=== PATIENT | male | born 1950 | race Caucasian/White ===

== ENCOUNTER 2017-10-30 06:08 | Emergency (ER) | payer MEDICARE ==
[~2017-10-30] VITALS: Ht 175.2 cm; Wt 86.2 kg
[~2017-10-30 06:08] MED LIST: BYSTOLIC; LEVAQUIN750 M1 PO; NAPROSYN500 MG PO; NORCO 5-325 TA1 EACH PO
== END 2017-10-30 06:26 | disposition left against medical advice (07) ==
LOC: ED 06:08
DX: N20.1 Calculus of ureter (principal); Z87.442 Personal history of urinary calculi; Z79.899 Other long term (current) drug therapy

== ENCOUNTER → 2017-11-16 | Outpatient (CLI) | payer BC | END | disposition home or self-care (01) | LOC: US 02:36 | DX: N20.0 Calculus of kidney (principal); N13.30 Unspecified hydronephrosis ==

== ENCOUNTER 2018-05-02 13:04 | Emergency (ER) | payer BC ==
[~2018-05-02] VITALS: Wt 86.2 kg
[2018-05-02] MEDS ORDERED: PREDNISONE50 MG PO (13:41)
== END 2018-05-02 13:54 | disposition home or self-care (01) ==
LOC: ED 13:04
DX: M77.11 Lateral epicondylitis, right elbow (principal); Z79.2 Long term (current) use of antibiotics; Z87.442 Personal history of urinary calculi; X50.0XXA Overexertion from strenuous movement or load, initial encounter; Y93.89 Activity, other specified; Y92.69 Other specified industrial and construction area as the place of occurrence of the external cause; Y99.0 Civilian activity done for income or pay

== ENCOUNTER 2019-03-05 15:50 | Emergency (ER) | payer BC ==
[~2019-03-05] VITALS: Ht 175.2 cm; Wt 86.2 kg
[~2019-03-05 15:50] MED LIST changes: +PREDNISONE50 MG PO
[2019-03-05 16:36] LABS: BASO % 0.3 % (0.0-1.0); EOS % 0.1 % (1.0-4.0); HEMATOCRIT 48.7 % (42.0-52.0); HEMOGLOBIN 16.2 g/dl (14.0-18.0); LYMPH # 1.3 10*3/uL (1.3-4.4); LYMPH % 9.5 % (27.0-41.0); MEAN CELL VOLUME 88.9 fl (80.0-94.0); MEAN CORPUSCULAR HGB 29.6 pg (27.0-31.0); MEAN CORPUSCULAR HGB CONC 33.3 g/dl (33.0-37.0); MEAN PLATELET VOLUME 8.9 fl (9.6-12.3); MONO # 0.1 10*3/uL (0.1-1.0); MONO % 0.6 % (3.0-9.0); NEUT % 89.2 % (47.0-73.0); PLATELET COUNT AUTOMATED 306 10*3/uL (130-400); RED BLOOD COUNT 5.48 10*6/uL (4.50-5.90); RED CELL DISTRI WIDTH 12.2 % (0-14.5); WHITE BLOOD COUNT 13.4 10*3/uL (4.8-10.8)
[2019-03-05 16:53] LABS: ALBUMIN 4.2 gm/dl (3.1-4.5); ALKALINE PHOSPHATASE 76 U/L (45-117); BUN 20 mg/dl (7-24); CHLORIDE 111 mmol/L (98-107); POTASSIUM 4.3 mmol/L (3.5-5.1); SGOT/AST 18 IU/L (3-35); SGPT/ALT 31 U/L (12-78); SODIUM 141 mmol/L (136-145); TOTAL PROTEIN 7.5 gm/dL (6.4-8.2)
== END 2019-03-05 17:56 | disposition home or self-care (01) ==
LOC: ED 15:50
PROVIDERS: Emergency Medicine
DX: N20.1 Calculus of ureter (principal); Z79.2 Long term (current) use of antibiotics; Z79.899 Other long term (current) drug therapy; Z87.442 Personal history of urinary calculi

== ENCOUNTER 2019-03-07 00:41 | Emergency (ER) | payer BC, MEDICARE ==
[~2019-03-07] VITALS: Ht 175.2 cm; Wt 86.2 kg
[2019-03-07 01:50] LABS: HEMATOCRIT 44.6 % (42.0-52.0); HEMOGLOBIN 14.7 g/dl (14.0-18.0); MEAN CELL VOLUME 89.9 fl (80.0-94.0); MEAN CORPUSCULAR HGB 29.6 pg (27.0-31.0); PLATELET COUNT AUTOMATED 270 10*3/uL (130-400); RED BLOOD COUNT 4.96 10*6/uL (4.50-5.90); RED CELL DISTRI WIDTH 12.4 % (0-14.5); WHITE BLOOD COUNT 16.3 10*3/uL (4.8-10.8)
[2019-03-07 02:02] LABS: CREATININE 1.44 mg/dL (0.70-1.30); POTASSIUM 3.8 mmol/L (3.5-5.1)
[2019-03-07 02:08] LABS: PLATELET SUFFICIENCY NORMAL (NORMAL); TOTAL CELLS COUNTED 100 #CELLS
== END 2019-03-07 04:48 | disposition short-term general hospital (02) ==
LOC: ED 00:41
PROVIDERS: Physician Assistant
DX: N13.9 Obstructive and reflux uropathy, unspecified (principal); N20.1 Calculus of ureter; I10 Essential (primary) hypertension; Z87.442 Personal history of urinary calculi

== ENCOUNTER → 2019-04-17 | Outpatient (CLI) | payer BC ==
[2019-04-17 14:10] LABS: BASO # 0.1 10*3/uL (0.0-0.1); BASO % 1.1 % (0.0-1.0); EOS # 0.3 10*3/uL (0.0-0.4); EOS % 3.4 % (1.0-4.0); HEMATOCRIT 46.6 % (42.0-52.0); HEMOGLOBIN 15.1 g/dl (14.0-18.0); LYMPH # 3.6 10*3/uL (1.3-4.4); LYMPH % 40.5 % (27.0-41.0); MEAN CELL VOLUME 88.8 fl (80.0-94.0); MEAN CORPUSCULAR HGB 28.8 pg (27.0-31.0); MEAN CORPUSCULAR HGB CONC 32.4 g/dl (33.0-37.0); MONO # 0.9 10*3/uL (0.1-1.0); MONO % 10.6 % (3.0-9.0); NEUT # 3.9 10*3/uL (2.3-7.9); NEUT % 44.1 % (47.0-73.0); PLATELET COUNT AUTOMATED 321 10*3/uL (130-400); RED BLOOD COUNT 5.25 10*6/uL (4.50-5.90); RED CELL DISTRI WIDTH 12.1 % (0-14.5); WHITE BLOOD COUNT 8.8 10*3/uL (4.8-10.8)
[2019-04-17 14:41] LABS: ALBUMIN 4.1 gm/dl (3.1-4.5); ALKALINE PHOSPHATASE 83 U/L (45-117); BUN 13 mg/dl (7-24); CHLORIDE 109 mmol/L (98-107); CREATININE 1.11 mg/dL (0.70-1.30); POTASSIUM 4.1 mmol/L (3.5-5.1); SGOT/AST 17 IU/L (3-35); SGPT/ALT 33 U/L (12-78); SODIUM 143 mmol/L (136-145); T3 UPTAKE 35 % (31-39); THYROXINE (T4) TOTAL 7.8 ug/dl (4.5-12.1); TOTAL PROTEIN 7.3 gm/dL (6.4-8.2)
[2019-04-17 15:17] LABS: BILIRUBIN NEGATIVE (NEGATIVE); CLARITY CLEAR (CLEAR); COLOR YELLOW (YELLOW); GLUCOSE NEGATIVE (NEGATIVE); KETONE NEGATIVE (NEGATIVE)
[2019-04-17 15:18] LABS: BLOOD 1+ (NEGATIVE); LEUKO ESTERASE NEGATIVE (NEGATIVE); NITRITE NEGATIVE (NEGATIVE); UROBILINOGEN 0.2 E.U./dl (0.2-1.0)
[2019-04-17 15:26] LABS: BACTERIA TRACE; EPITHELIAL CELLS 0-2; MUCOUS 1+
== END | disposition home or self-care (01) ==
LOC: LAB 13:33
PROVIDERS: Nurse Practitioner Family
DX: N20.0 Calculus of kidney (principal); E83.50 Unspecified disorder of calcium metabolism; I10 Essential (primary) hypertension

== ENCOUNTER → 2019-04-19 | Outpatient (CLI) | payer BC | END | disposition home or self-care (01) | LOC: US 01:09 | DX: N20.0 Calculus of kidney (principal) ==

== ENCOUNTER → 2019-05-24 | Outpatient (CLI) | payer BC | END | disposition home or self-care (01) | LOC: RESCLI 02:36 | DX: Z76.89 Persons encountering health services in other specified circumstances (principal); Z12.11 Encounter for screening for malignant neoplasm of colon; I10 Essential (primary) hypertension; N40.1 Benign prostatic hyperplasia with lower urinary tract symptoms; R35.0 Frequency of micturition; E34.9 Endocrine disorder, unspecified; N20.0 Calculus of kidney; Z98.890 Other specified postprocedural states ==

== ENCOUNTER 2019-07-16 06:49 | Inpatient (IN) | payer BC, MEDICARE ==
[~2019-07-16] VITALS: Ht 172.7 cm; Wt 83.5 kg
[2019-07-16] VITALS (11 sets, daily range): BP systolic 126–189; BP diastolic 66–99
--- NOTE | 2019-07-16 | NUR ---
TYLENOL EFFECTIVE, TEMP NOW 99.7.
--- NOTE | 2019-07-16 07:08 | NUR ---
PT REPORTS THROBBING CONSTANT PAIN OF FOREHEAD RATED AT 8/10 FOR PAST 6 DAYS WITH FEVER DISPITE TAKING TYLENOL PT LAST TOOK TYLENOL APROX 3 HOURS AGO
[2019-07-16 07:38] LABS: BASO % 0.2 % (0.0-1.0); EOS % 0.3 % (1.0-4.0); HEMATOCRIT 46.1 % (42.0-52.0); LYMPH % 11.3 % (27.0-41.0); MEAN CELL VOLUME 84.9 fl (80.0-94.0); MEAN CORPUSCULAR HGB 28.9 pg (27.0-31.0); MEAN CORPUSCULAR HGB CONC 34.1 g/dl (33.0-37.0); MEAN PLATELET VOLUME 9.1 fl (9.6-12.3); MONO # 0.6 10*3/uL (0.1-1.0); MONO % 7.1 % (3.0-9.0); NEUT # 7.3 10*3/uL (2.3-7.9); NEUT % 80.8 % (47.0-73.0); PLATELET COUNT AUTOMATED 213 10*3/uL (130-400); RED BLOOD COUNT 5.43 10*6/uL (4.50-5.90); RED CELL DISTRI WIDTH 12.2 % (0-14.5); WHITE BLOOD COUNT 9.1 10*3/uL (4.8-10.8)
[2019-07-16 07:45] LABS: ACT PARTIAL THROMBO TIME 34.5 SECONDS (20.0-32.1)
--- NOTE | 2019-07-16 07:51 | NUR ---
RAPID COVID TEST WAS NEGATIVE
[2019-07-16 07:53] LABS: ALKALINE PHOSPHATASE 88 U/L (45-117); BUN 21 mg/dl (7-24); CHLORIDE 102 mmol/L (98-107); POTASSIUM 3.4 mmol/L (3.5-5.1); SGOT/AST 68 IU/L (3-35); SGPT/ALT 87 U/L (12-78); SODIUM 134 mmol/L (136-145); TOTAL PROTEIN 6.9 gm/dL (6.4-8.2)
[2019-07-16 07:54] LABS: TROPONIN I < 0.015 ng/ml (<0.045)
--- NOTE | 2019-07-16 08:11 | NUR ---
PT REPORTS DECREASE IN THROBBING FOREHEAD PULSE OX ISABELA PT DRINKING WATER AT THIS TIME IN FOWLERS POSITION BED IN LOWEST POSITION BED RAIL UP CALL LIGHT IN REACH PT IN ROOM #3 WITH DOORS CLOSED
--- NOTE | 2019-07-16 08:14 | NUR ---
SPOKE WITH PT WHO STATED PT PERSCRIBED A Z PACK LAST WEEK UNSURE IF PT HAS BEEN TAKING MEDS PT REPORTED TO ME THAT ONLY MED THAT HE TAKES IS FOR HYPERTENSION
--- NOTE | 2019-07-16 09:54 | NUR ---
PT IN BED WATCHING TV PT STATES HE FELLS BETTER HAS BETTER MENTAL CLARITY WITH PAIN OF FOREHEAD THROBBING COMPLETELY RELIEVED
[2019-07-16 10:38] LABS: LDH 295 U/L (87-241)
--- NOTE | 2019-07-16 10:40 | NUR ---
A 68, admitted to , under the services of SABINE De Souza DO with a diagnosis of SUSPECTED COVID-19 INFECTION AND SEVERE SEPSIS. Chief complaint is FEVER,FATIGUE, AND COUGH AT HOME. Patient arrived via stretcher from ER. Monitor applied. Initial assessment completed. Vital signs taken and recorded. SABINE DE SOUZA DO notified of admission to the unit. Orders received. See assessment for past medical history, medications and allergies. Patient and/or family oriented to unit. [facility] Clothing/patient valuable form completed. SHONDA GRIER
[2019-07-16 10:43] LABS: ABG BASE EXCESS -0.9 mmol/L (-2.0-2.0); ARTERIAL BLOOD GAS PH 7.412 (7.35-7.45)
[2019-07-16] MEDS ORDERED: NORVASC5 MG PO (15:03)
[2019-07-16 16:08] LABS: ABG BASE EXCESS -0.1 mmol/L (-2.0-2.0); ARTERIAL BLOOD GAS PH 7.443 (7.35-7.45)
--- NOTE | 2019-07-16 16:23 | NUR ---
ZOFRAN GIVEN FOR NAUSEA.
--- NOTE | 2019-07-16 17:55 | NUR ---
CONSULT CALLED TO . AWAITING CALL BACK.
--- NOTE | 2019-07-16 18:12 | NUR ---
CALLED BACK, SAID PT WOULD BE SEEN TOMORROW. NO NEW ORDERS RECD.
--- NOTE | 2019-07-16 19:00 | NUR ---
PATIENT IS REFUSING TO SELF PRONE AT THIS TIME. STATES HE IS UNABLE TO BREATH COMFORTABLY AND HURTS HIS BACK. PATIENT IS MOSTLY STAYING ON RIGHT SIDE/ABDOMINAL REGION WITH HOB ELEVATED 30 DEGRESS. EDUCATION PROVIDED ON ADVANTAGES OF PRONING, PATIENT IS NOT RECEPTIVE TO PRONING. WILL CONTINUE TO MONITOR
--- NOTE | 2019-07-16 20:02 | NUR ---
PATIENT MEDICATED WITH TYLENOL FOR LOW GRADE TEMP OF 99.9. WILL CONTINUE TO MONITOR
--- NOTE | 2019-07-16 22:00 | NUR ---
IV started right hand with #22 protective cath after 2 attempts. Site prepped with Chloroprep. Sterile dressing applied. Patient tolerated procedure well. AUTUMN RANDALL
--- NOTE | 2019-07-16 22:25 | NUR ---
PATIENT MEDICATED WITH ZOFRAN FOR C/O NAUSEA. WILL CONTINUE TO MONITOR
--- NOTE | 2019-07-16 23:25 | NUR ---
ZOFRAN EFFECTIVE FOR NAUSEA.
[2019-07-17] VITALS (7 sets, daily range): BP systolic 137–198; BP diastolic 68–100
--- NOTE | 2019-07-17 01:00 | NUR ---
PATIENT STILL REFUSES TO PRONE. LAYS ON RIGHT SIDE/ABDOMINAL REGION WITH HOB SLIGHTLY ELEVATED, STATES HE BREATHS BETTER IN THIS POSITION. EDUCATION PROVIDED THOUGH. WILL MONITOR
--- NOTE | 2019-07-17 01:03 | NUR ---
PATIENT MEDICATED WITH TYLENOL TO HELP KEEP TEMP DOWN. WILL CONITNUE TO MONITOR
--- NOTE | 2019-07-17 02:03 | NUR ---
TYLENOL APPEARS EFFEVTIVE. NO DISTRESS NOTED. WILL MONITOR
--- NOTE | 2019-07-17 05:28 | NUR ---
PATIENT MEDICATED WITH TYLENOL FOR C/O HEADACHE. WILL MONITOR
[2019-07-17 05:58] LABS: BASO % 0.1 % (0.0-1.0); HEMATOCRIT 45.2 % (42.0-52.0); LYMPH # 1.2 10*3/uL (1.3-4.4); LYMPH % 12.6 % (27.0-41.0); MEAN CELL VOLUME 87.1 fl (80.0-94.0); MEAN CORPUSCULAR HGB 28.9 pg (27.0-31.0); MEAN CORPUSCULAR HGB CONC 33.2 g/dl (33.0-37.0); MEAN PLATELET VOLUME 9.3 fl (9.6-12.3); MONO # 0.8 10*3/uL (0.1-1.0); MONO % 8.2 % (3.0-9.0); NEUT # 7.6 10*3/uL (2.3-7.9); NEUT % 78.8 % (47.0-73.0); PLATELET COUNT AUTOMATED 219 10*3/uL (130-400); RED BLOOD COUNT 5.19 10*6/uL (4.50-5.90); RED CELL DISTRI WIDTH 12.3 % (0-14.5); WHITE BLOOD COUNT 9.6 10*3/uL (4.8-10.8)
[2019-07-17 07:02] LABS: ALBUMIN 2.7 gm/dl (3.1-4.5); ALKALINE PHOSPHATASE 78 U/L (45-117); BUN 22 mg/dl (7-24); CHLORIDE 106 mmol/L (98-107); CREATININE 1.09 mg/dL (0.70-1.30); POTASSIUM 3.9 mmol/L (3.5-5.1); SGOT/AST 56 IU/L (3-35); SGPT/ALT 68 U/L (12-78); SODIUM 138 mmol/L (136-145); TOTAL PROTEIN 6.7 gm/dL (6.4-8.2)
[2019-07-17 08:08] LABS: HEP B CORE AB, IGM Negative (Negative); HEPATITIS B SURFACE AG Negative (Negative); HEPATITIS C AB 0.1 (0.0-0.9); HEPATITIS C VIRUS ANTIBODY 0.1 s/co (0.0-0.9)
--- NOTE | 2019-07-17 08:44 | NUR ---
PRN TYLENOL AND ZOFRAN ADMINISTERED AT THIS TIME FOR COMPLAINTS OF NAUSEA AND A HEADACHE. WILL MONITOR FOR EFFECTIVENESS.
--- NOTE | 2019-07-17 09:00 | NUR ---
Photography Colorist in to talk to patient. Patient states lives at home with . There are no steps in the home. Physician: [facility] [place] [facility]: none Patient's level of ADLs: INDEPENDENT Patient has working utilities: all working DME: none Follow-up physician's appointment after d/c: will be made by hospitalist nurse director upon discharge Does patient want to access PORTAL?: no Discharge plan discussed with patient, he lives at home, is normally independent in adls and ambulation, works, and drives, he will return home when medically stable and denies any home needs at this time, case management will follow. MARLENI PITT
--- NOTE | 2019-07-17 10:00 | NUR ---
PT ASLEEP. TYLENOL AND ZOFRAN CONSIDERED EFFECTIVE. NO SOB NOTED AT REST. 6L NC INTACT. NO DISTRESS. BED IN LOWEST LOCKED POSITION AND CALL LIGHT WITHIN REACH.
[2019-07-17 11:08] LABS: ABG BASE EXCESS -0.2 mmol/L (-2.0-2.0); ARTERIAL BLOOD GAS PH 7.428 (7.35-7.45)
--- NOTE | 2019-07-17 12:00 | NUR ---
PT'S O2 CAME OFF WHILE ASLEEP. PULSE OX 78% PT INSTRUCTED TO BREATH DEEP THROUGH NOSE. O2 INCREASED TO 8L. RESPIRATORY NOTIFIED AND IN TO THE ROOM. PT REPOSITIONED IN BED. PULSE OX 94% O2 REDUCED BACK TO 6L. NO DISTRESS NOTED. RESPIRATIONS ARE EASY AND REGULAR. DENIES PAIN. BED IN LOWEST LOCKED POSITION AND CALL LIGHT WITHIN REACH. WILL CONTINUE TO MONITOR.
--- NOTE | 2019-07-17 12:51 | NUR ---
PRN TYLENOL ADMINISTERED AT THIS TIME FOR COMPLAINTS OF A HEADACHE.
--- NOTE | 2019-07-17 14:00 | NUR ---
2 ATTEMPTS AT AN IV MADE BY NURSE. UNSUCCESSFUL. TREMAYNE MEDLEY ALSO ATTEMPTED. UNSUCCESSFUL REBECCA MEDLEY SUCCESSFUL WITH ULTRA SOUND MACHINE. NEW IV IN RIGHT UPPER ARM. PATIENT TOLERATED WELL. BED IN LOWEST LOCKED POSITION AND CALL LIGHT WITHIN REACH.
--- NOTE | 2019-07-17 18:00 | NUR ---
PT STATES HE DOES NOT WANT VITAMIN C OR NEUTRA PHOS AT THIS TIME. STATES HE WANTS TO EAT FIRST. WILL TRY AGAIN AT ANOTHER TIME.
--- NOTE | 2019-07-17 19:00 | NUR ---
ABG DRAWN ON 15L HFNC. SATS STILL 88-90. PLACED ON NONREBREATHER. SATS BETWEEN 88-93 NOT COMPLAINING OF SHORTNESS OF BREATH AT THIS TIME
[2019-07-17 19:05] LABS: ABG BASE EXCESS -0.6 mmol/L (-2.0-2.0); ARTERIAL BLOOD GAS PH 7.424 (7.35-7.45)
--- NOTE | 2019-07-17 19:13 | NUR ---
UPON ENTERING ROOM, PATIENT HAS O2 OFF AND IS TALKING ON PHONE. PULSE OX 68%. O2 REAPPLIED. PULSE OX WAS GOING NO HIGHER THAN 80%. RESPIRATORY NOTIFIED. 15L HIFLOW O2 APPLIED. ABG'S OBATINED. PULSE OX 90%
--- NOTE | 2019-07-17 19:45 | NUR ---
DR FULLER CALLED REGARDING PATIENTS PULSE OX OF 88% DESPITE USE ON NONREBREATHER AND UPDATED ON ABG'S. ORDERS RECIEVED. PT'S UPDATED ON PATIENTS STATUS.
--- NOTE | 2019-07-17 19:45 | NUR ---
PT COMPLAINING OF SHORTNESS OF BREATH. dR FULLER CALLED. SETTING UP FOR INTUBATION
--- NOTE | 2019-07-17 20:25 | NUR ---
PT INTUBATED WITH A #8 ET TUBE. PT STARTED ON A DIPRIVAN GTT FOR SEDATION AT 30MCG. WEBER PLACED, L RADIAL ART AND RIJ MLC PLACED BY ANESTHESIA. 1 DOSE OF ZEMURON GIVEN. SEE ASSESSMENT.
--- NOTE | 2019-07-17 21:25 | NUR ---
DR VEGA AWARE THAT LAB IS UNABLE TO PREFORM ORDERED TESTS UNTIL AM.
--- NOTE | 2019-07-17 22:00 | NUR ---
KINNEAR AWARE THAT PATIENT HEART RATE AND BP HAVE ELEVATED TO 190'S AND 200/100. ORDERS RECEIVED.
[2019-07-17 22:32] LABS: ABG BASE EXCESS -3.2 mmol/L (-2.0-2.0)
[2019-07-17 22:33] LABS: ARTERIAL BLOOD GAS PH 7.19 (7.35-7.45)
--- NOTE | 2019-07-17 22:40 | NUR ---
DR. NINA NOTIFIED THAT LABETALOL AND DILAUDID HAS BEEN EFFECTIVE. HR AT 90'S AND BP 122/ 76 PER ART LINE.
[2019-07-18] VITALS (43 sets, daily range): BP systolic 95–175; BP diastolic 55–82
[2019-07-18 01:07] LABS: ABG BASE EXCESS -2.7 mmol/L (-2.0-2.0); ARTERIAL BLOOD GAS PH 7.324 (7.35-7.45)
[2019-07-18 05:38] LABS: ABG BASE EXCESS -2.2 mmol/L (-2.0-2.0); ARTERIAL BLOOD GAS PH 7.349 (7.35-7.45)
--- NOTE | 2019-07-18 09:00 | NUR ---
PATIENT IS INTUBATED AND SEDATED WITH DIPRIVAN GTT. DIPRIVAN INCREASED TO 50 MICS/24.6CC. ET TUBE 25 LIP/OGT TAPED ALONGSIDE. RIJ PATENT AND MORNING LABS DRAWN. RIJ DRESSING CHANGED DUE TO IT BE SOILED. SUCTIONED FOR SCANT AMOUNT SPUTUM ENDO AND ORALLY. BOWEL SOUNDS X 4. NO EXTREMITIY EDEMA. WEBER PATENT FOR MILDRED URINE. R RADIAL ART LINE ZEROED. BP 137/74. FIO2 TURNED DOWN TO 55% PER RESPIRATORY. POX 98%, HR 109,RESPIRATIONS 28,TEMP 101.7. TYLENOL GIVEN VOA OGT.
[2019-07-18 09:03] LABS: BASO % 0.1 % (0.0-1.0); EOS % 0.1 % (1.0-4.0); LYMPH # 0.8 10*3/uL (1.3-4.4); LYMPH % 5.4 % (27.0-41.0); MEAN CELL VOLUME 88.1 fl (80.0-94.0); MEAN CORPUSCULAR HGB 28.7 pg (27.0-31.0); MEAN CORPUSCULAR HGB CONC 32.6 g/dl (33.0-37.0); MONO # 1.1 10*3/uL (0.1-1.0); MONO % 7.4 % (3.0-9.0); NEUT # 12.7 10*3/uL (2.3-7.9); NEUT % 86.3 % (47.0-73.0); PLATELET COUNT AUTOMATED 250 10*3/uL (130-400); RED BLOOD COUNT 4.88 10*6/uL (4.50-5.90); RED CELL DISTRI WIDTH 12.7 % (0-14.5); WHITE BLOOD COUNT 14.7 10*3/uL (4.8-10.8)
[2019-07-18 09:20] LABS: ALBUMIN 2.7 gm/dl (3.1-4.5); CREATININE 1.99 mg/dL (0.70-1.30); POTASSIUM 4.3 mmol/L (3.5-5.1); TOTAL PROTEIN 6.8 gm/dL (6.4-8.2)
--- NOTE | 2019-07-18 09:30 | NUR ---
case management talks with patient's Jatin. discussed with her a discharge plan for patient when he is medically stable, educated her that he may need to go to a short term snf for rehab prior to returning home. educated her that patient would received 5 days of therapy and 24 hour care until he was stable to return home. she stated she was familiar with a snf but wanted to discuss where to refer patient to with her family, she stated she would contact case management with her decision for a snf referral. she stated if patient was medically able to return home she would like to have [facility] visit him at home. case management will follow
--- NOTE | 2019-07-18 10:00 | NUR ---
SPOKE TO DR. VEGA. ZOSYN AND ACTEMRA ANTIBIOTICS ARE ORDERED. MAKE SURE EXTENDED RELEASE FOR ZOSYN.
[2019-07-18 10:51] LABS: ABG BASE EXCESS -3.1 mmol/L (-2.0-2.0); ARTERIAL BLOOD GAS PH 7.32 (7.35-7.45)
--- NOTE | 2019-07-18 11:00 | NUR ---
DR. FULLER HERE FOR DAILY ROUNDING.
[2019-07-18 15:03] LABS: ABG BASE EXCESS -2.3 mmol/L (-2.0-2.0); ARTERIAL BLOOD GAS PH 7.336 (7.35-7.45)
[2019-07-18 19:19] LABS: ABG BASE EXCESS -2.6 mmol/L (-2.0-2.0); ARTERIAL BLOOD GAS PH 7.339 (7.35-7.45)
--- NOTE | 2019-07-18 20:44 | NUR ---
TYLENOL AND ZEMURON GIVEN AT THIS TIME. PATIENT STARTING TO BECAME ASYNCHRONOUS WITH THE VENT AND AGITATED. WILL CONTINUE TO MONITOR AND REASSESS.
--- NOTE | 2019-07-18 20:47 | NUR ---
COMPLETE BED BATH AND BED LINENS CHANGED AT THIS TIME. NO WOUNDS SEEN UPON ASSESSMENT. PATIENT SUCTIONED WITH YANKAR AND GOT MODERATE AMOUNT OF CLEAR SPUTUM.
[2019-07-19] VITALS (14 sets, daily range): BP systolic 106–155; BP diastolic 60–76
--- NOTE | 2019-07-19 04:30 | NUR ---
zemuron given at this time. patient had respiration of 26 to 28 and was asynchronous with vent. medication effective.
[2019-07-19 05:19] LABS: ALBUMIN 2.4 gm/dl (3.1-4.5); CREATININE 2.48 mg/dL (0.70-1.30); POTASSIUM 4.2 mmol/L (3.5-5.1); TOTAL PROTEIN 6.5 gm/dL (6.4-8.2)
[2019-07-19 05:22] LABS: ABG BASE EXCESS -2.4 mmol/L (-2.0-2.0); ARTERIAL BLOOD GAS PH 7.326 (7.35-7.45)
[2019-07-19 06:14] LABS: HEMATOCRIT 40.2 % (42.0-52.0); MEAN CELL VOLUME 88.4 fl (80.0-94.0); MEAN CORPUSCULAR HGB 28.6 pg (27.0-31.0); MEAN CORPUSCULAR HGB CONC 32.3 g/dl (33.0-37.0); MEAN PLATELET VOLUME 9.8 fl (9.6-12.3); PLATELET COUNT AUTOMATED 253 10*3/uL (130-400); RED BLOOD COUNT 4.55 10*6/uL (4.50-5.90); RED CELL DISTRI WIDTH 12.5 % (0-14.5); WHITE BLOOD COUNT 12.1 10*3/uL (4.8-10.8)
[2019-07-19 07:35] LABS: TOTAL CELLS COUNTED 100 #CELLS
[2019-07-19 07:36] LABS: BURR CELLS FEW; PLATELET SUFFICIENCY NORMAL (NORMAL)
--- NOTE | 2019-07-19 10:30 | NUR ---
patient remains on ventilator. undecided about which facility she would like patient referred to, case management will follow
[2019-07-19 14:37] LABS: ABG BASE EXCESS -2.6 mmol/L (-2.0-2.0); ARTERIAL BLOOD GAS PH 7.36 (7.35-7.45)
--- NOTE | 2019-07-19 20:55 | NUR ---
MEDICATED PT PER PRN ORDER WITH ZEMURON FOR PT'S AGITATION.
--- NOTE | 2019-07-19 21:09 | NUR ---
PT RESTING. EARLIER ZEMURON EFFECTIVE.
[2019-07-20] VITALS (12 sets, daily range): BP systolic 130–232; BP diastolic 59–105
[2019-07-20 05:28] LABS: ABG BASE EXCESS -1.2 mmol/L (-2.0-2.0); ARTERIAL BLOOD GAS PH 7.37 (7.35-7.45)
[2019-07-20 05:57] LABS: ALBUMIN 2.3 gm/dl (3.1-4.5); CREATININE 2.09 mg/dL (0.70-1.30); POTASSIUM 3.6 mmol/L (3.5-5.1); TOTAL PROTEIN 6.2 gm/dL (6.4-8.2)
[2019-07-20 06:20] LABS: BASO % 0.2 % (0.0-1.0); EOS # 0.1 10*3/uL (0.0-0.4); EOS % 0.9 % (1.0-4.0); LYMPH # 0.6 10*3/uL (1.3-4.4); LYMPH % 5.7 % (27.0-41.0); MEAN CELL VOLUME 86.5 fl (80.0-94.0); MEAN CORPUSCULAR HGB 28.4 pg (27.0-31.0); MEAN CORPUSCULAR HGB CONC 32.8 g/dl (33.0-37.0); MEAN PLATELET VOLUME 9.7 fl (9.6-12.3); MONO # 0.8 10*3/uL (0.1-1.0); MONO % 7.7 % (3.0-9.0); NEUT # 9.3 10*3/uL (2.3-7.9); NEUT % 84.9 % (47.0-73.0); RED BLOOD COUNT 4.51 10*6/uL (4.50-5.90); RED CELL DISTRI WIDTH 12.7 % (0-14.5)
[2019-07-20 06:31] LABS: PLATELET COUNT AUTOMATED 363 10*3/uL (130-400)
--- NOTE | 2019-07-20 08:00 | NUR ---
PATIENT INTUBATED AND WIDE AWAKE, SEDATION OFF. PATIENT ORIENTED AND ANXIOUS. NEW DIPRIVAN UP VIA RIJ. L ART LINE ZEROED. L MIDLINE PATENT AND NOW INFUSING ANTIBIOTIC. OGT PULMOCARE @40/HR, NO RESIDUAL,BOWEL SOUNDS X4, BM X 2 YESTERDAY. WEBER CLOUDY MILDRED URINE. EXTREMITES WITHOUT EDEMA AND ALL ELEVATED. FIO2 30% POX 95%. SUCTIONED SCANT AMNT CLEAR SPUTUM.
[2019-07-20 20:31] LABS: CREATININE 2.13 mg/dL (0.70-1.30); POTASSIUM 3.8 mmol/L (3.5-5.1)
--- NOTE | 2019-07-20 21:30 | NUR ---
SPOKE WITH DR. FULLER AND UPDATED HIM ON BMP RESULT. ORDERS RECEIVED.
[2019-07-20 21:57] LABS: ABG BASE EXCESS 0.5 mmol/L (-2.0-2.0); ARTERIAL BLOOD GAS PH 7.421 (7.35-7.45)
--- NOTE | 2019-07-20 23:53 | NUR ---
DR. NINA NOTIFIED THAT PATIENT HR AND BP ARE ELEVATED AT 120'S AND 200/100. ORDERS RECEIVED.
--- NOTE | 2019-07-20 23:54 | NUR ---
BED BATH COMPLETED AND LINENS CHANGED AT THIS TIME. ROCURONIUM GIVEN AT [facility]. PATIENT TOLERATED WELL.
[2019-07-21] VITALS (13 sets, daily range): BP systolic 136–206; BP diastolic 65–107
[2019-07-21 00:01] LABS: TB1 Ag VALUE 0.06 IU/mL (.)
--- NOTE | 2019-07-21 00:30 | NUR ---
IV LOPRESSOR EFFECTIVE. PATIENT HEART RATE AND BLOOD PRESSURE ARE TRENDING DOWN.
[2019-07-21 04:09] LABS: BASO % 0.4 % (0.0-1.0); EOS # 0.3 10*3/uL (0.0-0.4); EOS % 2.9 % (1.0-4.0); HEMATOCRIT 38.8 % (42.0-52.0); LYMPH # 0.7 10*3/uL (1.3-4.4); LYMPH % 7.5 % (27.0-41.0); MEAN CELL VOLUME 87.8 fl (80.0-94.0); MEAN CORPUSCULAR HGB 28.7 pg (27.0-31.0); MEAN CORPUSCULAR HGB CONC 32.7 g/dl (33.0-37.0); MEAN PLATELET VOLUME 9.3 fl (9.6-12.3); MONO % 11.3 % (3.0-9.0); NEUT # 6.8 10*3/uL (2.3-7.9); PLATELET COUNT AUTOMATED 399 10*3/uL (130-400); RED BLOOD COUNT 4.42 10*6/uL (4.50-5.90); RED CELL DISTRI WIDTH 12.7 % (0-14.5); WHITE BLOOD COUNT 8.9 10*3/uL (4.8-10.8)
[2019-07-21 04:24] LABS: ALBUMIN 2.4 gm/dl (3.1-4.5); CREATININE 2.41 mg/dL (0.70-1.30); POTASSIUM 3.9 mmol/L (3.5-5.1)
[2019-07-21 06:05] LABS: ABG BASE EXCESS 0.2 mmol/L (-2.0-2.0); ARTERIAL BLOOD GAS PH 7.406 (7.35-7.45)
--- NOTE | 2019-07-21 06:20 | NUR ---
PATIENT WAS FOUND IN ROOM STILL RESTRAINED WITH ET AND OG TUBE OUT. PATIENT TACHYPNIC AND PULSE OC IN THE 70'S. PATIENT OXYGENATED WITH THE AMBU BAG UNTIL ANESTESIA ARRIVED. PATIENT SEDATED FOR REINTUBATION WITH PROPOFOL, ZEMURON AND SUCC. INTUBATION WENT WELL AND ET TUBE POSITIONED AT 26 @ THE LIP. NEW OG TUBE INSERTED AND CXR ORDERED. PATIENT PLACED ON 40MCG OF PROPOFOL AND GIVEN A DOSE OF ZEMURON AT THIS TIME.
--- NOTE | 2019-07-21 06:30 | NUR ---
PT SELF EXTUBATED. INDUSTRIAL SOCIOLOGIST AND RN IN ROOM. BAGGED PT VIA BVM AND MAINTAINED SATS ABOVE 90% PRIOR TO WARP WORKER ARRIVAL. ASSISTED WARP WORKER WITH BEDSIDE INTUBATION. BBS PRESENT AND EQUAL. PLACE BACK ON VENT WITH PREVIOUS SETTINGS. ALARMS ON AND AUDIBLE.
--- NOTE | 2019-07-21 06:40 | NUR ---
DOSE OF IV LOPRESSOR GIVEN FOR HR OF 150'S AND BP OF 200/100. MEDICATION EFFECTIVE. HR 106 AND BP 160/69 BEFORE LEAVING ROOM.
[2019-07-21 12:38] LABS: ABG BASE EXCESS -1.6 mmol/L (-2.0-2.0); ARTERIAL BLOOD GAS PH 7.282 (7.35-7.45)
--- NOTE | 2019-07-21 19:40 | NUR ---
BLOOD [id number]. MEDICATED WITH LOPRESSOR 5MG IV PER PRN ORDER.
[2019-07-22] VITALS (18 sets, daily range): BP systolic 152–225; BP diastolic 65–98
--- NOTE | 2019-07-22 01:07 | NUR ---
PATIENT VERY RESTLESS. HR UP TO 130'S. BLOOD PRESSURE 200'S. RR 34. MEDICATED WITH ZEMURON PER PRN ORDER AND IMMEDIATELY EFFECTIVE.
--- NOTE | 2019-07-22 01:22 | NUR ---
BLOOD PRESSURE 212/90. MEDICATED WITH LOPRESSOR 5MG IV PER PRN ORDER. CALLED REGARDING BLOOD PRESSURE. ORDER RECEIVED TO GIVE 10MG IV LABETALOL X1.
[2019-07-22 05:58] LABS: ABG BASE EXCESS -0.3 mmol/L (-2.0-2.0); ARTERIAL BLOOD GAS PH 7.394 (7.35-7.45)
[2019-07-22 06:16] LABS: MEAN CELL VOLUME 87.7 fl (80.0-94.0); MEAN CORPUSCULAR HGB 28.3 pg (27.0-31.0); MEAN CORPUSCULAR HGB CONC 32.3 g/dl (33.0-37.0); MEAN PLATELET VOLUME 8.8 fl (9.6-12.3); PLATELET COUNT AUTOMATED 408 10*3/uL (130-400); RED BLOOD COUNT 4.56 10*6/uL (4.50-5.90); WHITE BLOOD COUNT 11.4 10*3/uL (4.8-10.8)
[2019-07-22 06:42] LABS: ALBUMIN 2.5 gm/dl (3.1-4.5); CREATININE 2.75 mg/dL (0.70-1.30); POTASSIUM 4.7 mmol/L (3.5-5.1); TOTAL PROTEIN 6.3 gm/dL (6.4-8.2)
[2019-07-22 07:19] LABS: TOTAL CELLS COUNTED 100 #CELLS
[2019-07-22 07:20] LABS: PLATELET SUFFICIENCY HIGH (NORMAL)
--- NOTE | 2019-07-22 07:50 | NUR ---
PT MEDICATED WITH LOPRESSOR 5MG IV PRN FOR SBP OF 190'S.
--- NOTE | 2019-07-22 11:59 | NUR ---
SHONDA AT DR LOVE'S ANSWERING SERVICE NOTIFIED OF NEW CONSULT ORDER AND WILL NOTIFY DR. LOVE.
--- NOTE | 2019-07-22 14:01 | NUR ---
PT PRONED IN BED AT THIS TIME.
--- NOTE | 2019-07-22 14:35 | NUR ---
DR NINA MADE AWARE OF PT'S SBP OF 225 AT THIS TIME ALONG WITH HR OF 125. ORDER TO GO AHEAD AND GIVEN PRN LOPRESSOR IV.
[2019-07-22 15:31] LABS: BACTERIA 4+; BILIRUBIN NEGATIVE (NEGATIVE); BLOOD NEGATIVE (NEGATIVE); CLARITY SL CLOUDY (CLEAR); COLOR YELLOW (YELLOW); GLUCOSE NEGATIVE (NEGATIVE); KETONE NEGATIVE (NEGATIVE); LEUKO ESTERASE NEGATIVE (NEGATIVE); MUCOUS 1+; NITRITE NEGATIVE (NEGATIVE); UROBILINOGEN 0.2 E.U./dl (0.2-1.0)
[2019-07-22 15:32] LABS: URIC ACID CRYSTALS 4+
--- NOTE | 2019-07-22 16:04 | NUR ---
PT REMAINS PRONED. HEAD REPOSITIONED AT THIS TIME FOR THE Q2H HEAD TURN.
[2019-07-22 16:17] LABS: ABG BASE EXCESS -4.5 mmol/L (-2.0-2.0); ARTERIAL BLOOD GAS PH 7.212 (7.35-7.45)
--- NOTE | 2019-07-22 18:09 | NUR ---
PT'S HEAD RESPOSITIONED AT THIS TIME FOR Q2H REPOSITIONING WHILE PRONE.
--- NOTE | 2019-07-22 18:49 | NUR ---
PT BECOMING RESTLESS WHILE PRONE, WORKED HIS HEAD OFF THE PRONE PILLOW. ORDER FOR NIMBEX RECEIVED AND GIVEN AT THIS TIME.
[2019-07-22 19:02] LABS: ARTERIAL BLOOD GAS PH 7.366 (7.35-7.45)
--- NOTE | 2019-07-22 21:15 | NUR ---
NIMBEX GIVEN PER DR ORDERS. RN WILL MONITOR
[2019-07-23] VITALS (15 sets, daily range): BP systolic 129–240; BP diastolic 68–110
--- NOTE | 2019-07-23 00:30 | NUR ---
IV LOPRESSOR GIVEN FOR ELEVATED BLOOD PRESSURE. RN WILL CONTINUE TO MONITOR
--- NOTE | 2019-07-23 00:51 | NUR ---
PATIENT ADMINISTERED NIMBEX FOR ELEVATED RESPIRATORY RATE AND RESTLESSNESS. RN WILL CONTINUE TO MONITOR
[2019-07-23 04:58] LABS: HEMATOCRIT 37.4 % (42.0-52.0); MEAN CELL VOLUME 90.3 fl (80.0-94.0); MEAN CORPUSCULAR HGB 28.5 pg (27.0-31.0); MEAN CORPUSCULAR HGB CONC 31.6 g/dl (33.0-37.0); PLATELET COUNT AUTOMATED 420 10*3/uL (130-400); RED BLOOD COUNT 4.14 10*6/uL (4.50-5.90); WHITE BLOOD COUNT 12.1 10*3/uL (4.8-10.8)
[2019-07-23 05:22] LABS: ALBUMIN 2.2 gm/dl (3.1-4.5); CREATININE 2.87 mg/dL (0.70-1.30); TOTAL PROTEIN 5.8 gm/dL (6.4-8.2)
--- NOTE | 2019-07-23 05:45 | NUR ---
PATIENT GIVEN IV LOPRESSOR DUE TO SYSTOLIC ABOVE 180 PRIOR TO UNPRONING. RN WILL MONITOR FOR EFFECTIVENESS
[2019-07-23 05:48] LABS: PLATELET SUFFICIENCY NORMAL (NORMAL); TOTAL CELLS COUNTED 100 #CELLS
[2019-07-23 05:52] LABS: ARTERIAL BLOOD GAS PH 7.241 (7.35-7.45)
--- NOTE | 2019-07-23 06:00 | NUR ---
PATIENT UNPRONED AT THIS TIME, TOLERATED WELL. WOUND CARE NURSE AT BEDSIDE, NO WOUNDS NOTED FROM PRONING. AIR CARGO GROUND OPERATIONS SUPERVISOR AT BEDSIDE TO ASSIST. BILATERAL WRIST RESTRAINTS IN PLACE TO PREVENT SELF EXTUBATION. RN MONITORING VIA CAMERA
[2019-07-23 06:18] LABS: ARTERIAL BLOOD GAS PH 7.305 (7.35-7.45)
--- NOTE | 2019-07-23 06:40 | NUR ---
PATIENT APPEARS MUCH MORE RELAXED SINCE UNPRONING. BLOOD PRESSURE HAS DECREASED TO HIGH SYSTOLIC RANGE. CURRENTLY RUNNING 140'S SYSTOLICALLY. RN WILL CONTINUE TO MONITOR
[2019-07-23 11:29] LABS: ABG BASE EXCESS -2.3 mmol/L (-2.0-2.0); ARTERIAL BLOOD GAS PH 7.371 (7.35-7.45)
--- NOTE | 2019-07-23 12:00 | NUR ---
case management contacted patient's Jatin regarding a discharge plan for patient, previously explained to her about discharge options including a short term group home, became angry and stated that patient isn't even off of the ventilator and she doesn't know what he will need when discharged. explained to her that patient is going to be weak when extubated and will probably need a short term group home for physical therapy to regain strength, also educated her that by choosing a facility, patient is not obligated to go if he chooses not to, but we need to have some kind of plan for discharge. stated if patient has to go anywhere she would like him at [facility]. master planner/social sciences research scientist will make referral to [facility]. case management will follow
--- NOTE | 2019-07-23 12:46 | NUR ---
Spouse called in and update was given.
--- NOTE | 2019-07-23 16:41 | NUR ---
Eyes open spontaneously, Medicated w/ prn med for HTN, ineffective, Incontinent of large loose stool. Radha care given, linen changed and repositioned. Nods head in appropriate response and assists w/ care.
--- NOTE | 2019-07-23 18:28 | NUR ---
dR Luke WAS NOTIFIED OF htn, Manual BP obtained and called to . Nibex was given as pt. remained anxious , BP elevated 190/114 A-line, Manual 240/110. Orders recieved for antihypertensive. Labetlol given to aid in BP reduction 188/92.
--- NOTE | 2019-07-23 20:25 | NUR ---
DR JAY CALLED IN AND ASKING RN TO CALL DR LOVE FOR RECOMMENDATIONS ON BLOOD PRESSURE CONTROL.
[2019-07-23 20:50] LABS: ABG BASE EXCESS -3.3 mmol/L (-2.0-2.0); ARTERIAL BLOOD GAS PH 7.322 (7.35-7.45)
--- NOTE | 2019-07-23 20:50 | NUR ---
SPOKE TO DR LOVE PER GÓMEZ JAY REQUEST REGARDING CONTINUED ELEVATED BLOOD PRESSURES. ORDERS RECIEVED.
--- NOTE | 2019-07-23 20:50 | NUR ---
IV LOPRESSOR GIVEN FOR CONTINUED ELEVATED BLOOD PRESSURE.
--- NOTE | 2019-07-23 21:34 | NUR ---
CATAPRES GIVEN PER GÓMEZ LOVE ORDER FOR CONTINUED BLOOD PRESSURE OVER 190 SYSTOLIC
--- NOTE | 2019-07-23 21:35 | NUR ---
DULCE STARTED PER DR ALVAREZ ORDER. STATES HE FEELS THAT PATIENT IS NOT ADEQUATELY SEDATION AND BLOOD PRESSURE ELEVATION REMAINS D/T THIS
--- NOTE | 2019-07-23 21:58 | NUR ---
PATIENT HAD MULTIPLY DESATS TO 89%, AND PATIENT SEEMED UNCOMFORTABLE WITH HIS BREATHING. I-TIME INCREASED FROM .8 TO .9 TO HELP HIS OXYGENATION, WITH HIS OXYGEN INCREASED TO 40% FROM 30%. HIS PEAK FLOW INCREASED TO 60 LPM TO HELP COMFORT HIS BREATHING PATTERN TO BE MORE SYMETRIC.
[2019-07-23 22:42] LABS: ABG BASE EXCESS -3.2 mmol/L (-2.0-2.0); ARTERIAL BLOOD GAS PH 7.334 (7.35-7.45)
[2019-07-24] VITALS (13 sets, daily range): BP systolic 107–200; BP diastolic 53–82
--- NOTE | 2019-07-24 03:19 | NUR ---
PATIENT RETURNED TO NORMAL SET VENTILATOR SETTINGS, PATIENT IS RESTING COMFORTABLY. SPO2:93% WILL CONTINUE TO MONITOR.
--- NOTE | 2019-07-24 04:14 | NUR ---
PATIENT BATHED AND BED CHANGED AT THIS TIME. PATIENT INCONTINENT OF MEDIUM SIZED LIQUID BM. PATIENT TOLERATED WELL.
[2019-07-24 04:58] LABS: ABG BASE EXCESS -1.4 mmol/L (-2.0-2.0); ARTERIAL BLOOD GAS PH 7.418 (7.35-7.45)
[2019-07-24 05:36] LABS: ALBUMIN 2.1 gm/dl (3.1-4.5); CREATININE 2.28 mg/dL (0.70-1.30); POTASSIUM 4.5 mmol/L (3.5-5.1); TOTAL PROTEIN 5.3 gm/dL (6.4-8.2)
[2019-07-24 06:25] LABS: HEMATOCRIT 34.1 % (42.0-52.0); MEAN CELL VOLUME 89.7 fl (80.0-94.0); MEAN CORPUSCULAR HGB 28.7 pg (27.0-31.0); MEAN PLATELET VOLUME 9.5 fl (9.6-12.3); PLATELET COUNT AUTOMATED 441 10*3/uL (130-400); RED CELL DISTRI WIDTH 13.1 % (0-14.5); WHITE BLOOD COUNT 11.7 10*3/uL (4.8-10.8)
[2019-07-24 07:21] LABS: TOTAL CELLS COUNTED 100 #CELLS
[2019-07-24 07:22] LABS: PLATELET SUFFICIENCY HIGH (NORMAL)
--- NOTE | 2019-07-24 08:45 | NUR ---
DIPRIVAN GTT TURNED OFF AT THIS TIME FOR SEDATION VACATION.
--- NOTE | 2019-07-24 09:29 | NUR ---
PT AWAKE AND FOLLOWING COMMANDS WITH DIPRIVAN OFF. PT'S BLOOD PRESSURE DID GO FROM SYSTOLIC OF LOW 100'S UP TO 180-200 SYSTOLIC WITH DIPRIVAN OFF. DIPRIVAN GTT RESTARTED AT 20MCG/KG/MIN
--- NOTE | 2019-07-24 11:07 | NUR ---
Referral Faxed to [facility]. Spoke with Melissa the Auditor Appraiser to Notify of Referral. WIll Follow.
--- NOTE | 2019-07-24 12:31 | NUR ---
DR BOOTH IN AND CHANGED THE SITE OF PT'S MULTILUMEN CATH AND ART LINE. NEW MLC PLACED TO LEFT IJ AND NEW ART LINE TO RIGHT RADIAL.
--- NOTE | 2019-07-24 13:20 | NUR ---
PT PRONED AT THIS TIME.
--- NOTE | 2019-07-24 13:38 | NUR ---
PT GIVEN NIMBEX WHILE PRONED AT THIS TIME.
--- NOTE | 2019-07-24 14:00 | NUR ---
PATIENT CHANGED BACK TO CMV 20, FIO2 >40%, PEEP >+[address] FULLER.
--- NOTE | 2019-07-24 14:30 | NUR ---
PT MEDICATED WITH CLONODINE 0.1MG VIA OG FOR BP SYSTOLIC 200.
--- NOTE | 2019-07-24 15:12 | NUR ---
PT'S BLOOD PRESSURE 159 SYSTOLIC AT THIS TIME AFTER GETTING CLONODINE PRN DOSE.
--- NOTE | 2019-07-24 15:55 | NUR ---
RIGHT IJ MULTILUMEN CATH REMOVED PER POLICY. TIP INTACT.
--- NOTE | 2019-07-24 15:55 | NUR ---
HEAD REPOSITIONED AT THIS TIME DUE TO BEING PRONED.
[2019-07-24 16:04] LABS: ABG BASE EXCESS -2.9 mmol/L (-2.0-2.0); ARTERIAL BLOOD GAS PH 7.344 (7.35-7.45)
--- NOTE | 2019-07-24 17:35 | NUR ---
PT MEDICATED WITH NIMBEX DUE TO AGITATION WHILE PRONED AND MOVING DESPITE VERSED, HALDOL ROUTINE.
--- NOTE | 2019-07-24 20:00 | NUR ---
Patient tolerating prone position, swam arms and head to the right. Moderate suction needed. Patient remains sedated, with no distress noted. Monitoring on camera.
--- NOTE | 2019-07-24 22:05 | NUR ---
24 HR chart check completed.
[2019-07-25] VITALS (12 sets, daily range): BP systolic 114–224; BP diastolic 55–107
--- NOTE | 2019-07-25 00:08 | NUR ---
Patient adjusted to the left. Tolerated well after scheduled versed and haldol given. Monitoring on camera.
--- NOTE | 2019-07-25 02:25 | NUR ---
Patient restless, moving about trying to unprone self. Nimbex given, effective immediately. Monitoring on camera.
--- NOTE | 2019-07-25 02:30 | NUR ---
Patients bp 208/87 once adjusted. Lopressor given. bp came down to 179/88. monitoring on camera.
--- NOTE | 2019-07-25 03:18 | NUR ---
Patients bp now 155/88. monitoring.
--- NOTE | 2019-07-25 04:30 | NUR ---
Patient unproned, tolerated well. Slight swelling to both eyes, rt greater than left. Patient sedated, no distress noted. Monitoring on camera.
[2019-07-25 05:37] LABS: ABG BASE EXCESS -1.7 mmol/L (-2.0-2.0); ARTERIAL BLOOD GAS PH 7.358 (7.35-7.45)
[2019-07-25 05:39] LABS: ALBUMIN 2.1 gm/dl (3.1-4.5); POTASSIUM 5.1 mmol/L (3.5-5.1); TOTAL PROTEIN 5.6 gm/dL (6.4-8.2)
[2019-07-25 06:24] LABS: HEMATOCRIT 35.8 % (42.0-52.0); MEAN CELL VOLUME 92.3 fl (80.0-94.0); MEAN CORPUSCULAR HGB 29.1 pg (27.0-31.0); MEAN CORPUSCULAR HGB CONC 31.6 g/dl (33.0-37.0); MEAN PLATELET VOLUME 9.4 fl (9.6-12.3); PLATELET COUNT AUTOMATED 448 10*3/uL (130-400); RED BLOOD COUNT 3.88 10*6/uL (4.50-5.90); RED CELL DISTRI WIDTH 13.2 % (0-14.5)
[2019-07-25 06:54] LABS: PLATELET SUFFICIENCY HIGH (NORMAL); TOTAL CELLS COUNTED 100 #CELLS
--- NOTE | 2019-07-25 08:50 | NUR ---
ASSUMED CARE FROM JAYME MEDLEY. PATIENT IS ADEQUATELY SEDATED ON 6MCG OF KETAMINE. PATIENT IS ABLE TO NOD HEAD "YES" AND "NO" TO QUESTIONS. PATIENT DENIES PAIN OR DISCOMFORT. PATIENT IS UNABLE TO OPEN EYES DUE TO SWELLING AT THIS TIME. PATIENT UPDATED ON PLAN OF CARE. PATIENT GIVEN SCHEDULED DOSES OF HALDOL AND VERSED AND WERE EFFECTIVE. ART LINE PRESSURE BAG CHANGED, MLC PORTS FLUSHED AND PATENT. PATIENT IS NSR IN THE 90"S AT THIS TIME ON MONITOR. SEE ASSESSMENT.
--- NOTE | 2019-07-25 09:52 | NUR ---
200CC FREE WATER FLUSH GIVEN AT THIS TIME. PATIENT TOLERATED WELL.
--- NOTE | 2019-07-25 11:25 | NUR ---
TYLENOL SUSPENSION GIVEN TO PATIENT AT THIS TIME. PATIENT TEMPERATURE TRENDING UP TO 99.5 FROM 98.8 UPON ENTERING THE ROOM. WILL CONTINUE TO MONITRO AND REASSESS.
--- NOTE | 2019-07-25 13:50 | NUR ---
dr. funez in to see patient and discuss plan of care. free water flushes increased to 300cc q6h and xanax increased to 0.5mg.
[2019-07-25 13:53] LABS: ABG BASE EXCESS -3.7 mmol/L (-2.0-2.0); ARTERIAL BLOOD GAS PH 7.24 (7.35-7.45)
--- NOTE | 2019-07-25 14:10 | NUR ---
PRN DOSE OF CATAPRES GIVEN. PATIENT BP 200/90'S PER ART LINE. PATIENT SHOWING NO OVERT SIGNS OF AGITATION.
--- NOTE | 2019-07-25 17:30 | NUR ---
300CC FREE WATER FLUSH GIVEN PER ORDER. PATIENT TOLERATED WELL.
--- NOTE | 2019-07-25 18:03 | NUR ---
IV LOPRESSOR GIVEN FOR RESISTANT HYPERTENSION AND TACHYCARDIA. HR WAS 110 AND BP WAS 224/107. MEDICATION WAS EFFECTIVE AND HR CAME DOWN TO 94 ON CM AND BP WAS 169/82. WILL CONTINUE TO MONITOR.
[2019-07-25 19:17] LABS: ABG BASE EXCESS -2.1 mmol/L (-2.0-2.0); ARTERIAL BLOOD GAS PH 7.357 (7.35-7.45)
--- NOTE | 2019-07-25 19:51 | NUR ---
Patient resting on vent, no signs of distress. Patient adjusted for comfort. Vital signs stable. Monitoring on camera.
[2019-07-26] VITALS (14 sets, daily range): BP systolic 136–227; BP diastolic 61–89
--- NOTE | 2019-07-26 05:47 | NUR ---
Patient tolerated vent throughout the night, no signs of agitation. Patient does awake with adjusting and when spoken to. Monitoring on camera.
[2019-07-26 06:01] LABS: CREATININE 1.77 mg/dL (0.70-1.30); POTASSIUM 4.5 mmol/L (3.5-5.1); TOTAL PROTEIN 5.3 gm/dL (6.4-8.2)
[2019-07-26 06:04] LABS: ARTERIAL BLOOD GAS PH 7.398 (7.35-7.45)
[2019-07-26 06:04] LABS: HEMATOCRIT 33.3 % (42.0-52.0); MEAN CELL VOLUME 91.7 fl (80.0-94.0); MEAN CORPUSCULAR HGB 28.4 pg (27.0-31.0); MEAN CORPUSCULAR HGB CONC 30.9 g/dl (33.0-37.0); MEAN PLATELET VOLUME 9.7 fl (9.6-12.3); PLATELET COUNT AUTOMATED 425 10*3/uL (130-400); RED BLOOD COUNT 3.63 10*6/uL (4.50-5.90); RED CELL DISTRI WIDTH 13.3 % (0-14.5); WHITE BLOOD COUNT 10.2 10*3/uL (4.8-10.8)
[2019-07-26 06:38] LABS: TOTAL CELLS COUNTED 100 #CELLS
[2019-07-26 06:39] LABS: PLATELET SUFFICIENCY HIGH (NORMAL)
--- NOTE | 2019-07-26 10:30 | NUR ---
DR. FULLER HERE FOR MORNING HUDDLE. PATIENT CARE DISCUSSED. ORDERS RECEIVED.
--- NOTE | 2019-07-26 14:20 | NUR ---
PRN CATAPRESS GIVEN AT THIS TIME. PATIENT BP ELEVATED TO 170/80'S WILL CONTINUE TO MONITOR AND REASSESS.
--- NOTE | 2019-07-26 17:01 | NUR ---
PATIENT GIVEN NIMBEX AROUND 1610. PATIENT BP STARTED TO CLIMB BY 1620. PATIENT PRESSURE REACHED 220'S/80'S BY 1640 WITH HEART RATE INCREASE FROM 70'S TO 100'S. JOSEFINA FROM ANESTHESIA NOTIFIED.
--- NOTE | 2019-07-26 17:09 | NUR ---
IV LOPRESSOR GIVEN. FOR ELEVATED HR AND BLOOD PRESSURE. WILL CONTINUE TO MONITOR.
--- NOTE | 2019-07-26 18:20 | NUR ---
NON-SCHEDULED DOSE OF VERSED GIVEN FOR AGITATION. PATIENT PULLING AT RESTRAINTS AND HITTING SIDERAILS. MEDICATION EFFECTIVE.
--- NOTE | 2019-07-26 19:50 | NUR ---
Patients blood pressure up to 234/88, prn catapres given. Monitoring on camera.
--- NOTE | 2019-07-26 20:30 | NUR ---
Patient blood pressure now at 218/80 after catapress, prn dose of lopressor given. Monitoring on camera.
--- NOTE | 2019-07-26 22:35 | NUR ---
Patients blood pressure 140/63([id number]). Patient showing no signs of distress, respirations 16. Monitoring on camera.
--- NOTE | 2019-07-26 23:00 | NUR ---
Nimbex given for respirations of 24-26, over the vent setting of 20. Effective immediately to 20 resp. Monitoring on camera.
--- NOTE | 2019-07-26 23:11 | NUR ---
Once given nimbex, patient blood pressure is now 210/88([id number]).
[2019-07-27] VITALS: BP 167/69
[2019-07-27 01:00] VITALS: BP 165/68
[2019-07-27 02:00] VITALS: BP 158/60
--- NOTE | 2019-07-27 02:40 | NUR ---
Patient becoming agitated, resps up to 42. Nimbex given. Blood pressure went up from 140/60's to 210/88. Called out for lopressor, was given and pressure began to lower.
--- NOTE | 2019-07-27 03:00 | NUR ---
While monitoring camera, patients pox dropped to the 80's myself and respiratoy entered room, patient was very diaphoretic and seay in color, hr 100's, pox 80 then to the 50's. Called Dr. Guerrier with ipad and new order received to prone and up o2 to 60%.
--- NOTE | 2019-07-27 03:20 | NUR ---
Crew in room to prone patient, once with turning patient to get sheet under him, his heart rate went from 100's to 40's almost instantly. Pox 50's, Agnes from chiki.
--- NOTE | 2019-07-27 03:44 | NUR ---
Cooper martinez called, chiki in room, dr tabor arrived from er. Patient given rounds of epi and atropine with no success.
--- NOTE | 2019-07-27 04:05 | NUR ---
Dr Mckenzie called time of 04:05am.
--- NOTE | 2019-07-27 04:20 | NUR ---
Family notified by supervisor metal furniture assembly
--- NOTE | 2019-07-27 06:02 | NUR ---
REFERENCE #[id number] FROM ONE CALL.
--- NOTE | 2019-07-27 09:00 | NUR ---
[facility] HERE TO TRANSPORT BODY TO [facility].
== END 2019-07-27 09:00 | disposition expired | DRG 870 ==
LOC: ED 06:49 → EDHOLD 09:35 → 5E 09:35
PROVIDERS: Family Medicine; Internal Medicine; Internal Medicine Critical Care Medicine; Internal Medicine Nephrology; Student in an Organized Health Care Education/Training Program; ADMIT Internal Medicine
PROC: 5A1955Z Respiratory Ventilation, Greater than 96 Consecutive Hours (ICD-10-PCS; principal; 2019-07-17)
PROC: 0BH18EZ Insertion of Endotracheal Airway into Trachea, Via Natural or Artificial Opening Endoscopic (ICD-10-PCS; principal; 2019-07-17)
PROC: B548ZZA Ultrasonography of Superior Vena Cava, Guidance (ICD-10-PCS; principal; 2019-07-17)
PROC: 02HV33Z Insertion of Infusion Device into Superior Vena Cava, Percutaneous Approach (ICD-10-PCS; principal; 2019-07-17)
PROC: 0BH17EZ Insertion of Endotracheal Airway into Trachea, Via Natural or Artificial Opening (ICD-10-PCS; 2019-07-21)
PROC: 02HV33Z Insertion of Infusion Device into Superior Vena Cava, Percutaneous Approach (ICD-10-PCS; 2019-07-24)
PROC: B548ZZA Ultrasonography of Superior Vena Cava, Guidance (ICD-10-PCS; 2019-07-24)
PROC: 03HY32Z Insertion of Monitoring Device into Upper Artery, Percutaneous Approach (ICD-10-PCS; 2019-07-24)
PROC: 4A133J1 Monitoring of Arterial Pulse, Peripheral, Percutaneous Approach (ICD-10-PCS; 2019-07-24)
PROC: 4A133B1 Monitoring of Arterial Pressure, Peripheral, Percutaneous Approach (ICD-10-PCS; 2019-07-24)
DX: A41.89 Other specified sepsis (principal); J96.01 Acute respiratory failure with hypoxia; N17.0 Acute kidney failure with tubular necrosis; U07.1 COVID-19; J12.89 Other viral pneumonia; K72.00 Acute and subacute hepatic failure without coma; E43 Unspecified severe protein-calorie malnutrition; E87.1 Hypo-osmolality and hyponatremia; E87.6 Hypokalemia; R65.20 Severe sepsis without septic shock; I10 Essential (primary) hypertension; D64.9 Anemia, unspecified; R73.9 Hyperglycemia, unspecified; E83.39 Other disorders of phosphorus metabolism; E78.1 Pure hyperglyceridemia; Z87.442 Personal history of urinary calculi; Z79.899 Other long term (current) drug therapy; Z68.27 Body mass index [BMI] 27.0-27.9, adult